=== PATIENT | male | born 1940 | race Caucasian/White ===

== ENCOUNTER → 2017-10-04 | Outpatient (REF) | payer OTHER, MEDICARE | LOC: M LAB REF 12:24 | DX: D23.12 Other benign neoplasm of skin of left eyelid, including canthus (principal) | CPT/HCPCS: 88304 ==

== ENCOUNTER 2018-04-10 13:46 | Emergency (ER) | payer OTHER, MEDICARE ==
[2018-04-10 15:56] LABS: BASO % 0.5 % (0.0-1.0); EOS # 0.2 10^3/uL (0.0-0.50); EOS % 1.8 % (0.0-3.0); HEMATOCRIT 41.6 % (42.0-52.0); HEMOGLOBIN 14.7 g/dl (13.5-17.5); IMMATURE GRANULOCYTE % 0.4 % (0-3.0); LYMPH # 0.5 10^3/uL (1.5-4.5); LYMPH % 6.1 % (24.0-44.0); MEAN CORPUSCULAR HGB CONC 35.3 g/dl (32.0-36.5); MEAN CORPUSCULAR VOLUME 87.8 fl (80.0-96.0); MONO # 0.9 10^3/uL (0.0-0.8); MONO % 10.7 % (0.0-5.0); NEUTROPHILS # 6.7 10^3/uL (1.8-7.7); NEUTROPHILS % 80.5 % (36.0-66.0); PLATELET COUNT, AUTOMATED 284 10^3/uL (150-450); RED BLOOD COUNT 4.74 10^6/uL (4.30-6.10); RED CELL DISTRIBUTION WIDTH 12.4 % (11.5-14.5); WHITE BLOOD COUNT 8.3 10^3/uL (4.0-10.0)
[2018-04-10] MEDS: AMPICILLIN SOD/SULBACTAM SOD 3 GM in D5W MINI-BAG PLUS 100 ML IV ×2 (16:00→21:41)
[2018-04-10 16:17] LABS: ALBUMIN 4.2 GM/DL (3.2-5.2); ALKALINE PHOSPHATASE 79 U/L (45-117); ALT/SGPT 25 U/L (12-78); ANION GAP 11 MEQ/L (8-16); AST/SGOT 20 U/L (7-37); BILIRUBIN,DIRECT 0.3 MG/DL (0.0-0.2); BILIRUBIN,TOTAL 0.8 MG/DL (0.2-1.0); BLOOD UREA NITROGEN 16 MG/DL (7-18); C REACTIVE PROTEIN QUANTITATIV 8.54 MG/DL (0.00-0.30); CALCIUM LEVEL 9.4 MG/DL (8.8-10.2); CARBON DIOXIDE LEVEL 28 MEQ/L (21-32); CHLORIDE LEVEL 101 MEQ/L (98-107); CREATININE FOR GFR 0.97 MG/DL (0.70-1.30); GLOMERULAR FILTRATION RATE > 60.0 (>42); GLUCOSE, FASTING 244 MG/DL (70-100); POTASSIUM SERUM 3.9 MEQ/L (3.5-5.1); SODIUM LEVEL 140 MEQ/L (136-145); TOTAL PROTEIN 7.2 GM/DL (6.4-8.2)
[2018-04-10 16:17] LABS: LACTIC ACID SEPSIS PROTOCOL 1.8 MMOL/L (0.4-2.0)
[2018-04-10 16:30] LABS: ERYTHROCYTE SEDIMENTATION RATE 27 mm/hr (0-20)
[2018-04-10] MEDS ORDERED: ISOVUE-370 76% 100ML VIAL (Q9967) As Ordered (16:37)
[2018-04-10] MEDS: KETOROLAC 30 MG/ML VIAL (J1885) IV (22:05)
== END 2018-04-10 22:24 | disposition home or self-care (01) ==
LOC: M ED 13:46
DX: L03.211 Cellulitis of face (principal); R01.1 Cardiac murmur, unspecified; E11.9 Type 2 diabetes mellitus without complications; I10 Essential (primary) hypertension; E78.5 Hyperlipidemia, unspecified; Z79.899 Other long term (current) drug therapy
CPT/HCPCS: Q9967

== ENCOUNTER → 2019-03-17 | Outpatient (REF) | payer MEDICARE, OTHER ==
[~2019-03-17] MED LIST: CIPR-249 PO; FELO5TAB PO; GLYB1TAB65 PO; HYDR-2541 PO; LISI-538 PO; PERC5TAB12 PO; SIMV20TA2 PO
== END ==
LOC: M SFHCPLAZ 14:50
PROVIDERS: ATTEND Surgery
DX: T81.31XD Disruption of external operation (surgical) wound, not elsewhere classified, subsequent encounter (principal)

== ENCOUNTER → 2022-10-22 | Outpatient (REF) | payer MEDICARE, OTHER ==
[~2022-10-22] MED LIST changes: -FELO5TAB PO; +FELO5TAB26 PO; +GLYB-148 PO; -GLYB1TAB65 PO; -LISI-538 PO; +LISI20TA33 PO; -SIMV20TA2 PO; +SIMV20TA22 PO
[2022-10-22 15:11] LABS: HEMOGLOBIN A1c 6.9 % (4.0-6.0)
== END ==
LOC: M SFHCWOUN 12:59
PROVIDERS: ATTEND Surgery
DX: E11.621 Type 2 diabetes mellitus with foot ulcer (principal)

== ENCOUNTER → 2022-11-06 | Outpatient (POV) | payer OTHER ==
[~2022-11-06] VITALS: Ht 167.6 cm; Wt 88.6 kg
[2022-11-06 08:30] VITALS: BP 180/68
== END ==
LOC: M IRPOV 08:19
PROVIDERS: ATTEND Radiology Diagnostic Radiology
DX: S81.801A Unspecified open wound, right lower leg, initial encounter (principal); E11.9 Type 2 diabetes mellitus without complications; I10 Essential (primary) hypertension; E78.5 Hyperlipidemia, unspecified; Z79.84 Long term (current) use of oral hypoglycemic drugs

== ENCOUNTER → 2022-11-20 | Outpatient (CLI) | payer OTHER | LOC: M RAD 10:42 | PROVIDERS: ATTEND Surgery | DX: L97.522 Non-pressure chronic ulcer of other part of left foot with fat layer exposed (principal); L97.513 Non-pressure chronic ulcer of other part of right foot with necrosis of muscle; R68.89 Other general symptoms and signs; I70.213 Atherosclerosis of native arteries of extremities with intermittent claudication, bilateral legs ==

== ENCOUNTER → 2022-11-20 | Outpatient (CLI) | payer OTHER ==
[~2022-11-20] MED LIST changes: +ISOVUE-370 76% 100ML VIAL As Ordered ONE
[2022-11-20 13:48] LABS: BLOOD UREA NITROGEN 21 MG/DL (9-23); CARBON DIOXIDE LEVEL 27 MMOL/L (20-31); CHLORIDE LEVEL 106 MMOL/L (98-107); CREATININE FOR GFR 0.83 MG/DL (0.70-1.30); GLOMERULAR FILTRATION RATE > 60.0 (>35); GLUCOSE, FASTING 133 MG/DL (74-106); POTASSIUM SERUM 3.8 MMOL/L (3.5-5.1); SODIUM LEVEL 139 MMOL/L (136-145)
== END ==
LOC: M RAD 10:49
PROVIDERS: ATTEND Radiology Diagnostic Radiology
DX: L97.522 Non-pressure chronic ulcer of other part of left foot with fat layer exposed (principal); L97.513 Non-pressure chronic ulcer of other part of right foot with necrosis of muscle; R68.89 Other general symptoms and signs; I70.213 Atherosclerosis of native arteries of extremities with intermittent claudication, bilateral legs; N28.1 Cyst of kidney, acquired; K80.20 Calculus of gallbladder without cholecystitis without obstruction
CPT/HCPCS: 36415; 75635; 80048; 93925; Q9967

== ENCOUNTER → 2022-12-06 | Outpatient (CLI) | payer OTHER ==
[~2022-12-06] MED LIST changes: +ISOVUE-300 61% 100ML VIAL As Ordered ONE; -ISOVUE-370 76% 100ML VIAL As Ordered ONE; +LIDOCAINE 1% MDV 20ML VIAL As Ordered ONE; +MIDAZOLAM INJ 2MG/2ML VIAL As Ordered ONE; +NS 1,000 ML IV SCH; +diphenhydrAMINE 50MG/ML VIAL As Ordered ONE; +fentaNYL 100 MCG/2 ML INJECTION As Ordered ONE
[2022-12-06 07:35] VITALS: TEMP 97.6
[2022-12-06 07:58] LABS: HEMATOCRIT 39.5 % (42.0-52.0); HEMOGLOBIN 13.6 g/dl (13.5-17.5); MEAN CORPUSCULAR HEMOGLOBIN 29.6 pg (27.0-33.0); MEAN CORPUSCULAR HGB CONC 34.4 g/dl (32.0-36.5); MEAN CORPUSCULAR VOLUME 85.9 fl (80.0-96.0); PLATELET COUNT, AUTOMATED 305 10^3/uL (150-450); WHITE BLOOD COUNT 7.8 10^3/uL (4.0-10.0)
[2022-12-06 15:20] VITALS: BP 184/78; O2SAT 98
== END ==
LOC: M IRPRO 06:56
PROVIDERS: ATTEND Radiology Diagnostic Radiology
DX: I70.239 Atherosclerosis of native arteries of right leg with ulceration of unspecified site (principal); L97.919 Non-pressure chronic ulcer of unspecified part of right lower leg with unspecified severity; Q25.8 Other congenital malformations of other great arteries; Z95.828 Presence of other vascular implants and grafts
CPT/HCPCS: 36246; 75630; 75774; 85027; 99152; 99153; C1769; C1887; C1894; J1200; J2250; J3010; Q9967

== ENCOUNTER → 2023-01-22 | Outpatient (REF) | payer OTHER ==
[~2023-01-22] MED LIST changes: +ASPI-226 PO; +DOXY100T PO; +HYDR12.55 PO; -ISOVUE-300 61% 100ML VIAL As Ordered ONE; -LIDOCAINE 1% MDV 20ML VIAL As Ordered ONE; -MIDAZOLAM INJ 2MG/2ML VIAL As Ordered ONE; -NS 1,000 ML IV SCH; -diphenhydrAMINE 50MG/ML VIAL As Ordered ONE; -fentaNYL 100 MCG/2 ML INJECTION As Ordered ONE
== END ==
LOC: M SFHCWOUN 12:05
PROVIDERS: ATTEND Physician Assistant
DX: E11.621 Type 2 diabetes mellitus with foot ulcer (principal)

== ENCOUNTER 2023-01-30 12:45 | Day surgery (SDC) | payer OTHER ==
[~2023-01-30] VITALS: Ht 170.2 cm; Wt 85.3 kg
[~2023-01-30 12:45] MED LIST changes: +ceFAZolin SOD 2 GM in IV 1 EA IV ONE
[2023-01-30] MEDS ORDERED: LIDOCAINE 1% SDV 30ML VIAL As Ordered ONE (12:47)
[2023-01-30] MEDS ORDERED: fentaNYL 100 MCG/2 ML INJECTION As Ordered ONE (13:12)
[2023-01-30] MEDS ORDERED: ceFAZolin 2 GM/D5W 50 ML IV BAG As Ordered ONE (14:12)
[2023-01-30] MEDS ORDERED: ACETAMINOPHEN 1000MG 100ML IV BAG As Ordered ONE (14:24)
[2023-01-30 15:25] VITALS: BP 180/85; TEMP 96.9; O2SAT 96
== END 2023-01-30 15:30 | disposition home or self-care (01) ==
LOC: M SDC 12:45
PROVIDERS: ATTEND Podiatrist Foot & Ankle Surgery
DX: E11.621 Type 2 diabetes mellitus with foot ulcer (principal); L97.529 Non-pressure chronic ulcer of other part of left foot with unspecified severity; I10 Essential (primary) hypertension; Z85.46 Personal history of malignant neoplasm of prostate; Z79.899 Other long term (current) drug therapy; Z79.82 Long term (current) use of aspirin; Z79.84 Long term (current) use of oral hypoglycemic drugs
CPT/HCPCS: 28112; 88305; J0131; J0665; J0690; J3010

== ENCOUNTER → 2023-02-14 | Outpatient (CLI) | payer OTHER ==
[~2023-02-14] MED LIST changes: -ceFAZolin SOD 2 GM in IV 1 EA IV ONE
== END ==
LOC: M RAD 12:19
PROVIDERS: ATTEND Surgery Vascular Surgery
DX: I73.9 Peripheral vascular disease, unspecified (principal)

== ENCOUNTER 2023-09-25 13:38 | Inpatient (IN) | payer OTHER ==
[~2023-09-25] VITALS: Ht 172.7 cm; Wt 86.0 kg
[2023-09-25] VITALS (8 sets, daily range): BP systolic 157–192; BP diastolic 74–87; TEMP 97.5–98.3; O2SAT 96–98
[2023-09-25 14:35] LABS: BASO # 0.1 10^3/uL (0.0-0.2); BASO % 1.1 % (0.0-1.0); EOS # 0.6 10^3/uL (0.0-0.5); EOS % 7.7 % (0.0-3.0); HEMATOCRIT 39.1 % (42.0-52.0); HEMOGLOBIN 13.5 g/dl (13.5-17.5); LYMPH # 0.8 10^3/uL (1.5-5.0); LYMPH % 10.7 % (24.0-44.0); MEAN CORPUSCULAR HEMOGLOBIN 29.9 pg (27.0-33.0); MEAN CORPUSCULAR HGB CONC 34.5 g/dl (32.0-36.5); MEAN CORPUSCULAR VOLUME 86.7 fl (80.0-96.0); MONO # 0.8 10^3/uL (0.0-0.8); MONO % 10.5 % (2.0-8.0); NEUTROPHILS % 69.7 % (36.0-66.0); PLATELET COUNT, AUTOMATED 320 10^3/uL (150-450); RED BLOOD COUNT 4.51 10^6/uL (4.30-6.10); WHITE BLOOD COUNT 7.1 10^3/uL (4.0-10.0)
[2023-09-25 14:48] LABS: INR 0.97; PARTIAL THROMBOPLASTIN TIME 26.2 SECONDS (24.8-34.2); PROTHROMBIN TIME 12.6 SECONDS (12.5-14.5)
[2023-09-25 15:05] LABS: CK-MB VALUE MASS 4.6 NG/ML (<3.6)
[2023-09-25 15:06] LABS: MB/CK RELATIVE INDEX 4.94 (< OR =4)
[2023-09-25 15:12] LABS: RSV AMPLIFICATION NEGATIVE (NEGATIVE)
[2023-09-25] MEDS ORDERED: DEXTROSE 50% 50ML SYRINGE IV PRN (16:00)
[2023-09-25] MEDS ORDERED: MOM 30ML SUSPENSION UDC PO PRN (16:00)
[2023-09-25] MEDS ORDERED: GLUCOSE 4GM CHEW TABLET PO PRN (16:00)
[2023-09-25] MEDS ORDERED: GLUCAGON INJ 1MG VIAL SC PRN (16:00)
[2023-09-25] MEDS ORDERED: HYDR-3490 PO (16:18)
[2023-09-25] MEDS ORDERED: GLIP5TAB17 PO (16:19)
[2023-09-25] MEDS ORDERED: METF10004 PO (16:19)
[2023-09-25] MEDS ORDERED: HOME MED LIST COMPLETE! XX SCH (16:25)
[2023-09-25 17:01] LABS: CK-MB VALUE MASS 3.9 NG/ML (<3.6)
[2023-09-25 17:02] LABS: ALBUMIN 3.7 G/DL (3.2-5.2); ALKALINE PHOSPHATASE 67 U/L (46-116); ALT/SGPT 15 U/L (7.0-40); AST/SGOT 15 U/L (<34); BILIRUBIN,TOTAL 0.5 MG/DL (0.3-1.2); BLOOD UREA NITROGEN 22 MG/DL (9-23); CALCIUM LEVEL 9.2 MG/DL (8.3-10.6); CARBON DIOXIDE LEVEL 26 MMOL/L (20-31); CHLORIDE LEVEL 110 MMOL/L (98-107); GLOMERULAR FILTRATION RATE > 60.0 (>35); GLUCOSE, FASTING 109 MG/DL (74-106); POTASSIUM SERUM 4.6 MMOL/L (3.5-5.1); SODIUM LEVEL 144 MMOL/L (136-145); TOTAL PROTEIN 6.3 G/DL (5.7-8.2)
[2023-09-25 17:11] LABS: PARTIAL THROMBOPLASTIN TIME 26.9 SECONDS (24.8-34.2); PROTHROMBIN TIME 12.9 SECONDS (12.5-14.5)
[2023-09-25 17:17] LABS: CHOLESTEROL RISK RATIO 3.58 (<5); HDL CHOLESTEROL 33.5 MG/DL (>40); LDL CHOLESTEROL 65.1 MG/DL (<100); MB/CK RELATIVE INDEX 4.23 (< OR =4); NON-HDL-C 86.5 MG/DL
[2023-09-25] MEDS: INSULIN LISPRO (NovoLOG) PER UNIT SC SCH ×2 (17:30→21:00)
[2023-09-25] MEDS: predniSONE 20 MG TAB PO SCH (19:02)
[2023-09-25] MEDS: ATORVASTATIN 20 MG TAB PO SCH (21:32)
[2023-09-25] MEDS: ACETAMINOPHEN TAB 650MG DOSE (2X325MG) PO PRN (21:32)
[2023-09-25] MEDS: DOCUSATE SODIUM 100MG CAPSULE PO SCH (21:33)
[2023-09-25] MEDS: RAMELTEON 8 MG TAB (ROZEREM) PO PRN (21:35)
[2023-09-26 02:00] VITALS: BP 148/66; TEMP 97.3; O2SAT 94
[2023-09-26 02:17] VITALS: BP 148/64; TEMP 97.6; O2SAT 98
[2023-09-26 05:44] VITALS: BP 148/62; TEMP 97.5; O2SAT 96
[2023-09-26 06:23] LABS: HEMATOCRIT 34.6 % (42.0-52.0); HEMOGLOBIN 12.1 g/dl (13.5-17.5); MEAN CORPUSCULAR HEMOGLOBIN 29.7 pg (27.0-33.0); PLATELET COUNT, AUTOMATED 261 10^3/uL (150-450); RED BLOOD COUNT 4.07 10^6/uL (4.30-6.10)
[2023-09-26 06:49] LABS: BLOOD UREA NITROGEN 25 MG/DL (9-23); CALCIUM LEVEL 8.9 MG/DL (8.3-10.6); CARBON DIOXIDE LEVEL 26 MMOL/L (20-31); CHLORIDE LEVEL 107 MMOL/L (98-107); CREATININE FOR GFR 0.86 MG/DL (0.70-1.30); GLOMERULAR FILTRATION RATE > 60.0 (>35); GLUCOSE, FASTING 303 MG/DL (74-106); POTASSIUM SERUM 4.6 MMOL/L (3.5-5.1); SODIUM LEVEL 136 MMOL/L (136-145)
[2023-09-26] MEDS: HEPARIN SOD (PORCINE) 5000UNITS/ML 1ML VIAL/SYRINGE SQ SCH (09:11)
[2023-09-26] MEDS ORDERED: VALA1TAB5 PO (09:34)
[2023-09-26] MEDS ORDERED: PRED20TA PO (09:34)
[2023-09-26] MEDS ORDERED: XARE20TA PO (09:37)
[2023-09-26 10:00] VITALS: BP 151/57; TEMP 97.9; O2SAT 96
[2023-09-26] MEDS: valACYclovir HCL 500 MG TAB PO SCH (10:04)
== END 2023-09-26 12:59 | disposition home or self-care (01) | DRG 74 ==
LOC: M ED 13:38 → M ED INP 15:58 → M MSPAV 18:14
PROVIDERS: ADMIT Student in an Organized Health Care Education/Training Program; ATTEND Student in an Organized Health Care Education/Training Program
DX: G51.0 Bell's palsy (principal); H53.8 Other visual disturbances; I10 Essential (primary) hypertension; E78.5 Hyperlipidemia, unspecified; E11.51 Type 2 diabetes mellitus with diabetic peripheral angiopathy without gangrene; I65.23 Occlusion and stenosis of bilateral carotid arteries; Z79.82 Long term (current) use of aspirin; Z79.899 Other long term (current) drug therapy; Z89.421 Acquired absence of other right toe(s); G14 Postpolio syndrome; Z79.52 Long term (current) use of systemic steroids; R00.1 Bradycardia, unspecified

== ENCOUNTER → 2024-04-07 | Outpatient (REF) | payer OTHER ==
[~2024-04-07] MED LIST changes: +GLIP5TAB17 PO; +HYDR-3490 PO; +METF10004 PO; +PRED20TA PO; +VALA1TAB5 PO; +XARE20TA PO
[2024-04-07 17:24] LABS: HEMOGLOBIN A1c 6.5 % (4.0-6.0)
== END ==
LOC: M SFHCWOUN 16:01
PROVIDERS: ATTEND Physician Assistant
DX: E11.621 Type 2 diabetes mellitus with foot ulcer (principal)